=== PATIENT | male | born 1965 | race Caucasian/White ===

== ENCOUNTER → 2024-09-06 07:17 | Outpatient (REF) | payer BC, SELFPAY | LOC: RAD 07:17 | PROVIDERS: ATTENDING PHYSICIAN Nurse Practitioner Family; FAMILY PHYSICIAN Internal Medicine | DX: R19.09 Other intra-abdominal and pelvic swelling, mass and lump (principal); R59.9 Enlarged lymph nodes, unspecified | CPT/HCPCS: 76882 ==

== ENCOUNTER 2025-02-18 06:11 | Day surgery (SDC) | payer BC, SELFPAY | END 2025-02-18 08:35 | disposition home or self-care (01) | LOC: GI 06:11 | PROVIDERS: ATTENDING PHYSICIAN Surgery | DX: Z12.11 Encounter for screening for malignant neoplasm of colon (principal); K57.30 Diverticulosis of large intestine without perforation or abscess without bleeding | CPT/HCPCS: G0105 ==